=== PATIENT | male | born 1960 | race Caucasian/White ===

== ENCOUNTER → 2016-05-26 | Outpatient (CLI) | payer BC ==
[~2016-05-26] MED LIST: BYSTOLIC5 MG PO; ELIQUIS 5MG PO; HCTZ12.5TAB PO; PRILOSEC 20MG20 MG PO
== END ==
LOC: COL.RAD 07:47
DX: M16.11 Unilateral primary osteoarthritis, right hip (principal)
CPT/HCPCS: J3301; Q9967

== ENCOUNTER → 2016-11-16 | Outpatient (CLI) | payer BC | LOC: COL.VAS 14:33 | DX: M79.662 Pain in left lower leg (principal) ==

== ENCOUNTER 2017-01-13 13:38 | Inpatient (IN) | payer BC ==
[~2017-01-13] VITALS: Ht 182.9 cm; Wt 81.6 kg
[2017-03-08] VITALS (12 sets, daily range): BP systolic 85–142; BP diastolic 51–94; PULSE 51–110; TEMP 97.8–98.9
[2017-03-08] MEDS ORDERED: FERROUSAL325 MG PO (05:57)
[2017-03-08] MEDS ORDERED: VITAMIN C500 MG PO (05:58)
[2017-03-08] MEDS ORDERED: FOLIC ACID 40400 MCG PO (05:59)
[2017-03-08] MEDS ORDERED: CIALIS5 MG PO (06:01)
[2017-03-08] MEDS ORDERED: XARELTO20 MG PO (10:13)
[2017-03-09] VITALS: BP 138/76; PULSE 73; TEMP 99.6
[2017-03-09 04:15] VITALS: BP 141/80; PULSE 67; TEMP 98.9
[2017-03-09 06:22] LABS: HEMOGLOBIN 12.6 g/dl (13.5-18.0)
[2017-03-09 06:25] LABS: HEMATOCRIT 35.4 % (42.0-52.0)
[2017-03-09 08:10] VITALS: BP 129/78; PULSE 79; TEMP 99.2
[2017-03-09 12:44] VITALS: BP 133/80; PULSE 72; TEMP 97.9
== END 2017-03-09 14:45 | disposition home or self-care (01) | DRG 470 ==
LOC: JCC 03-08 05:28
PROVIDERS: Orthopaedic Surgery
PROC: 0SRB0JZ Replacement of Left Hip Joint with Synthetic Substitute, Open Approach (ICD-10-PCS; principal; 2017-03-08 07:30)
DX: M16.12 Unilateral primary osteoarthritis, left hip (principal); I10 Essential (primary) hypertension
CPT/HCPCS: A9284; C1713; C1776; J0690; J1100; J1200; J2250; J2274; J2405; J2704; J7120

== ENCOUNTER → 2017-02-08 | Outpatient (CLI) | payer BC | LOC: COL.VAS 10:27 | DX: I82.812 Embolism and thrombosis of superficial veins of left lower extremity (principal) ==

== ENCOUNTER 2017-03-07 14:48 | Outpatient (RCR) | payer BC ==
[2017-03-08] MEDS ORDERED: FERROUSAL325 MG PO (05:57)
[2017-03-08] MEDS ORDERED: VITAMIN C500 MG PO (05:58)
[2017-03-08] MEDS ORDERED: FOLIC ACID 40400 MCG PO (05:59)
[2017-03-08] MEDS ORDERED: CIALIS5 MG PO (06:01)
[2017-03-08] MEDS ORDERED: XARELTO20 MG PO (10:13)
== END 2017-03-09 12:41 ==
LOC: WSPT 14:48
DX: Z01.818 Encounter for other preprocedural examination (principal)

== ENCOUNTER 2017-04-20 15:30 | Outpatient (RCR) | payer BC ==
[~2017-04-20 15:30] MED LIST changes: +CIALIS5 MG PO; +FERROUSAL325 MG PO; +FOLIC ACID 40400 MCG PO; +VITAMIN C500 MG PO; +XARELTO20 MG PO
== END 2017-04-20 17:00 | disposition home or self-care (01) ==
LOC: WSPT 15:30
DX: Z47.89 Encounter for other orthopedic aftercare (principal); Z96.642 Presence of left artificial hip joint

== ENCOUNTER 2017-05-23 12:54 | Inpatient (IN) | payer BC ==
[~2017-05-23] VITALS: Ht 182.9 cm; Wt 82.2 kg
[2017-08-15] VITALS (12 sets, daily range): BP systolic 99–134; BP diastolic 53–84; PULSE 52–772; TEMP 8
[2017-08-15] MEDS ORDERED: ELIQUIS 5MG PO (05:58)
[2017-08-15 06:09] LABS: INR 0.9 (0.8-3.0); PROTHROMBIN TIME 10.4 SECONDS (9.7-12.8)
[2017-08-16 00:14] VITALS: BP 135/94; PULSE 68; TEMP 98.5
[2017-08-16 04:47] VITALS: BP 122/72; PULSE 72; TEMP 98
[2017-08-16 06:35] LABS: HEMOGLOBIN 12.2 g/dl (13.5-18.0)
[2017-08-16 06:37] LABS: HEMATOCRIT 34.4 % (42.0-52.0)
[2017-08-16 08:48] VITALS: BP 132/58; PULSE 79; TEMP 98.8
== END 2017-08-16 11:15 | disposition home or self-care (01) | DRG 470 ==
LOC: JCC 06-14 10:45
PROVIDERS: Orthopaedic Surgery; Physician Assistant
PROC: 0SR90JA Replacement of Right Hip Joint with Synthetic Substitute, Uncemented, Open Approach (ICD-10-PCS; principal; 2017-08-15 07:30)
DX: M16.11 Unilateral primary osteoarthritis, right hip (principal); M87.351 Other secondary osteonecrosis, right femur; I10 Essential (primary) hypertension; Z86.718 Personal history of other venous thrombosis and embolism; Z95.820 Peripheral vascular angioplasty status with implants and grafts
CPT/HCPCS: A9284; C1713; C1776; J0690; J1100; J2250; J2274; J2405; J2704; J2765; J3010; J7120; J7121

== ENCOUNTER → 2017-06-06 | Outpatient (CLI) | payer BC | LOC: COL.VAS 09:15 | DX: I82.432 Acute embolism and thrombosis of left popliteal vein (principal) ==

== ENCOUNTER → 2017-08-08 | Outpatient (CLI) | payer BC | LOC: COL.LAB 14:35 → COL.RAD 14:35 | DX: Z01.812 Encounter for preprocedural laboratory examination (principal) ==

== ENCOUNTER 2017-09-29 14:30 | Outpatient (RCR) | payer BC | END 2017-11-23 | disposition home or self-care (01) | LOC: WSC | DX: Z47.1 Aftercare following joint replacement surgery (principal); Z96.641 Presence of right artificial hip joint ==

== ENCOUNTER → 2017-12-22 | Outpatient (CLI) | payer BC | LOC: COL.RAD 06:37 | DX: R11.2 Nausea with vomiting, unspecified (principal) | CPT/HCPCS: A9541 ==

== ENCOUNTER → 2018-09-21 | Outpatient (CLI) | payer BC | LOC: COL.VAS 09:05 | DX: I82.4Z2 Acute embolism and thrombosis of unspecified deep veins of left distal lower extremity (principal) ==

== ENCOUNTER → 2020-01-28 | Outpatient (CLI) | payer BC | LOC: COL.RAD 07:24 | DX: I77.810 Thoracic aortic ectasia (principal); R91.8 Other nonspecific abnormal finding of lung field | CPT/HCPCS: Q9967 ==

== ENCOUNTER → 2020-10-09 | Outpatient (CLI) | payer BC | LOC: COL.RAD 14:37 | DX: J90 Pleural effusion, not elsewhere classified (principal); K76.0 Fatty (change of) liver, not elsewhere classified; J98.11 Atelectasis; S22.079A Unspecified fracture of T9-T10 vertebra, initial encounter for closed fracture; S22.089A Unspecified fracture of T11-T12 vertebra, initial encounter for closed fracture; S32.019A Unspecified fracture of first lumbar vertebra, initial encounter for closed fracture; S32.029A Unspecified fracture of second lumbar vertebra, initial encounter for closed fracture; Z96.643 Presence of artificial hip joint, bilateral | CPT/HCPCS: Q9967 ==

== ENCOUNTER → 2020-11-13 | Outpatient (CLI) | payer BC | LOC: COL.RAD 07:23 | DX: K29.70 Gastritis, unspecified, without bleeding (principal); R68.81 Early satiety ==

== ENCOUNTER 2021-05-10 08:25 | Day surgery (SDC) | payer BC ==
[2021-05-10] VITALS (9 sets, daily range): BP systolic 97–148; BP diastolic 58–81; PULSE 62–78; TEMP 98.3
[~2021-05-10] VITALS: Ht 183 cm; Wt 84.0 kg
[2021-05-10 09:03] LABS: HEMATOCRIT 47.1 % (42.0-52.0); HEMOGLOBIN 16.1 g/dl (13.5-18.0); MEAN CELL VOLUME 102 fl (80.0-100.0); MEAN CORPUSCULAR HEMOGLOBIN 35 pg (27-31); MEAN CORPUSCULAR HGB CONC 34 g/dl (33.0-37.0); MEAN PLATELET VOLUME 10.4 fl (7.4-10.4); PLATELET COUNT 180 K/mm3 (130-400); REDCELL DISTRIBUTION WIDTH-CV 11.6 % (11.5-14.5)
--- NOTE | 2021-05-10 09:09 | NUR ---
SEE MERGE FOR ALL MEDICATION ADMINISTRATION TIMES/DOSAGES AND INTRA/POST PROCEDURE SEDATION ASSESSMENTS. PRE PROCEDURE ASSESSMENT COMPLETED IN [facility].
[2021-05-10 09:13] LABS: PROTHROMBIN TIME 10.7 SECONDS (9.7-12.8)
[2021-05-10] MEDS ORDERED: CARDIZEM CD 24240 MG PO (09:13)
[2021-05-10] MEDS ORDERED: KLOR-CON 1010 MEQ PO (09:14)
[2021-05-10] MEDS ORDERED: ZOFRAN8 MG PO (09:14)
[2021-05-10 09:15] LABS: PARTIAL THROMBOPLASTIN TIME 33.9 SECONDS (26.0-37.0)
[2021-05-10] MEDS ORDERED: COZAAR 50MG50 MG/TAB PO (09:15)
[2021-05-10] MEDS ORDERED: TAMBOCOR50 MG PO (09:16)
[2021-05-10] MEDS ORDERED: ZYLOPRIM 300MG300 MG PO (09:17)
[2021-05-10 09:28] LABS: ALBUMIN 3.6 gm/dL (3.4-4.8); BILIRUBIN,TOTAL 0.7 mg/dL (0.2-1.2); CALCIUM 8.5 mg/dL (8.4-10.2); CREATININE, serum 0.86 mg/dL (0.72-1.25); POTASSIUM 3.9 mmol/L (3.5-4.5); TOTAL PROTEIN 6.6 gm/dL (6.2-8.1)
--- NOTE | 2021-05-10 10:45 | NUR ---
Report from Oliva CORONA. 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 Alert and oriented, denies pain and needs at this time. Right Tband with 12 cc air CD&I, good pulses and cap refill < 3 secs. bedside
--- NOTE | 2021-05-10 13:17 | NUR ---
12 cc air released from right Tband and drsg applied. INT discontinued intact. Discharge instructions given to pt/.
--- NOTE | 2021-05-10 13:20 | NUR ---
Transferred to private car by barron
== END 2021-05-10 13:20 | disposition home or self-care (01) ==
LOC: COL.CAR 08:25
PROVIDERS: Internal Medicine Cardiovascular Disease
DX: R94.39 Abnormal result of other cardiovascular function study (principal); I10 Essential (primary) hypertension; I48.0 Paroxysmal atrial fibrillation; I82.502 Chronic embolism and thrombosis of unspecified deep veins of left lower extremity; F10.10 Alcohol abuse, uncomplicated; F17.220 Nicotine dependence, chewing tobacco, uncomplicated; Z90.89 Acquired absence of other organs; Z79.899 Other long term (current) drug therapy
CPT/HCPCS: C1769; J1644; J2250; J3010; J7030; Q9967

== ENCOUNTER 2024-01-15 13:31 | Inpatient (IN) | payer BC ==
[2024-01-15] VITALS (7 sets, daily range): BP systolic 130–146; BP diastolic 65–85; PULSE 68–86; TEMP 98.2–98.7
[~2024-01-15] VITALS: Ht 182.9 cm; Wt 83.2 kg
[~2024-01-15 13:31] MED LIST changes: +CARDIZEM CD 24240 MG PO; +COZAAR 50MG50 MG/TAB PO; +KLOR-CON 1010 MEQ PO; +TAMBOCOR50 MG PO; +ZOFRAN8 MG PO; +ZYLOPRIM 300MG300 MG PO
[2024-01-15 14:14] LABS: BASO # 0.1 K/mm3 (0.0-0.2); BASO % 0.6 % (0.0-2.0); EOS % 0.1 % (0.0-4.0); GRAN # 6.2 K/mm3 (1.4-6.5); GRAN % 78.9 % (42.2-75.2); HEMATOCRIT 42.7 % (42.0-52.0); HEMOGLOBIN 15.2 g/dl (13.5-18.0); LYMPH # 0.9 K/mm3 (1.2-3.4); MEAN CELL VOLUME 101 fl (80.0-100.0); MEAN CORPUSCULAR HEMOGLOBIN 36 pg (27-31); MEAN CORPUSCULAR HGB CONC 36 g/dl (33.0-37.0); MONO # 0.7 K/mm3 (0.1-0.6); MONO % 9.1 % (1.7-9.3); PLATELET COUNT 165 K/mm3 (130-400); RED BLOOD COUNT 4.22 M/mm3 (4.20-5.60); REDCELL DISTRIBUTION WIDTH-CV 11.6 % (11.5-14.5)
[2024-01-15 14:28] LABS: BILIRUBIN,TOTAL 1.4 mg/dL (0.2-1.2); C-REACTIVE PROTEIN 0.45 mg/dL (0.00-0.50); CALCIUM 9.9 mg/dL (8.4-10.2); CREATININE, serum 1.42 mg/dL (0.72-1.25); MAGNESIUM 1.5 mg/dL (1.6-2.6)
[2024-01-15] MEDS ORDERED: LORazepam 2 MG/ML 1 ML VIAL IV ONE (15:30)
[2024-01-15] MEDS ORDERED: Folic Acid 1 MG,Thiamine 200 MG in NS 1,000 ML IV ONE (15:30)
[2024-01-15] MEDS ORDERED: PROZAC 20MG20 MG PO (15:40)
[2024-01-15] MEDS ORDERED: PROTONIX 40MG T40 MG PO (15:41)
[2024-01-15] MEDS ORDERED: TAMBOCOR 1100 MG/TAB PO (15:41)
[2024-01-15] MEDS ORDERED: CARTIA XT240 MG PO (15:42)
[2024-01-15] MEDS ORDERED: Folic Acid 1 MG TAB PO SCH (16:12)
[2024-01-15] MEDS ORDERED: NS 1,000 ML IV SCH (16:15)
[2024-01-15] MEDS ORDERED: LORazepam 2 MG/ML 1 ML VIAL IV PRN (16:15)
[2024-01-15] MEDS ORDERED: Mag/Al Hydrox/Simeth Susp 30 ML CUP PO PRN (16:15)
[2024-01-15] MEDS ORDERED: Ondansetron 4 MG/2 ML VIAL IV PRN (16:15)
[2024-01-15] MEDS ORDERED: Magnesium Sulfate 8% 50 ML IV ONE (16:30)
[2024-01-15] MEDS ORDERED: Multivitamin TAB PO SCH (17:00)
[2024-01-15] MEDS ORDERED: Magnesium Oxide 400 MG TAB PO SCH (17:00)
[2024-01-15] MEDS ORDERED: NS 1,000 ML IV ONE (17:00)
--- NOTE | 2024-01-15 17:31 | NUR ---
Pt. arrived to the floor. Pt. is A&OX3, assessment complete. IV to lt. ac patent, IV fluids infusing per orders. Pt. denies pain or other needs, call light chuyhtin reach.
--- NOTE | 2024-01-15 20:15 | NUR ---
Initial shift assessment done- watching TV, on his phone, states he is feeling fine-- denies any nausea/anxiety, does have tremors noted to hands/arms, tele on-Sinus, will put pt on fall risk due to tremors/understands to call for assistance to bathroom, bed alarm on, IV fluids of NS at 125cc/hr, states did eat a good supper tonight .VSS.
[2024-01-15 20:33] LABS: TRICYCLIC ANTIDEPRESS URINE NEGATIVE (NEGATIVE)
[2024-01-15] MEDS ORDERED: Apixaban 5 MG TABLET PO SCH (21:00)
[2024-01-16] VITALS (15 sets, daily range): BP systolic 128–158; BP diastolic 74–94; PULSE 79–95; TEMP 97.4–98.7
--- NOTE | 2024-01-16 05:20 | NUR ---
Pt awake ,, has been resting quietly most of the night, now nauseated, dry heaves, slight headache, will medicate for nausea and will also give Ativan 1 mg IV for a CIWA scaore of 10
[2024-01-16 07:14] LABS: BASO # 0.1 K/mm3 (0.0-0.2); BASO % 1.1 % (0.0-2.0); EOS # 0.1 K/mm3 (0.0-0.7); EOS % 1.1 % (0.0-4.0); GRAN # 3.2 K/mm3 (1.4-6.5); LYMPH # 0.9 K/mm3 (1.2-3.4); LYMPH % 19.9 % (20.0-51.0); MEAN CELL VOLUME 103 fl (80.0-100.0); MEAN CORPUSCULAR HGB CONC 35 g/dl (33.0-37.0); MEAN PLATELET VOLUME 11.7 fl (7.4-10.4); MONO # 0.4 K/mm3 (0.1-0.6); MONO % 8.5 % (1.7-9.3); PLATELET COUNT 114 K/mm3 (130-400); RED BLOOD COUNT 3.46 M/mm3 (4.20-5.60); REDCELL DISTRIBUTION WIDTH-CV 11.6 % (11.5-14.5)
[2024-01-16 07:18] LABS: HEMATOCRIT 35.6 % (42.0-52.0); HEMOGLOBIN 12.3 g/dl (13.5-18.0); MEAN CORPUSCULAR HEMOGLOBIN 36 pg (27-31)
[2024-01-16 07:21] LABS: ALBUMIN 3.1 g/dL (3.4-4.8); BILIRUBIN,TOTAL 1.6 mg/dL (0.2-1.2); CALCIUM 8.5 mg/dL (8.4-10.2); CREATININE, serum 1.03 mg/dL (0.72-1.25); MAGNESIUM 1.9 mg/dL (1.6-2.6); POTASSIUM 3.8 mEq/L (3.5-4.5); TOTAL PROTEIN 5.4 g/dl (6.2-8.1)
--- NOTE | 2024-01-16 08:16 | NUR ---
patient sitting in bed resting. denies pain but reports mild nausea at this time. fluids infusing per doctor's order. telemetry inplace. ciwa protocol inplace. denies any other needs at this time. call ligth within reach. bed at lowest position.
[2024-01-16] MEDS ORDERED: dilTIAZem CD (24-HR) 240 MG CAP PO SCH (09:00)
[2024-01-16] MEDS ORDERED: FLUoxetine 20 MG CAP PO SCH (09:00)
--- NOTE | 2024-01-16 10:18 | NUR ---
coke worker met with patient to discuss discharge planning. Patient lives in [place] with his , Josefina, P# [phone]. Patient's second point of contact is Kiara (daughter) P# [phone]. PCP is Dr. Garcia, pharmacy is [facility]. No issues affording medications. Insurance is [employer]. Patient reports his DPOA-HC would be Josefina and his two daughters but does not have a form offically completed. SW provided a blank copy of the DPOA-HC in case patient decided to complete one while in the hospital. No DME that patient currently uses. Patient reports to be independent with ADLS at home. Patient reported he has a form of transportation to get to and from appointments. SW discussed alcohol rehab as patient's history and physical reported he was interested in rehab options. SW presented the drug and alcohol resource guide. Patient stated he thought that a hospital this size should have a second step facility where he could go to for drug and alcohol rehab. SW explained unfortunately that those services are not available at the hospital. Patient stated he was not interested in going out of town for rehab but he would discuss with his . Patient reported he has gone to AA meetings before and that was helpful. Patient would like to return home at time of discharge. Discharge plan: Home
[2024-01-16] MEDS ORDERED: Thiamine 100 MG TAB PO SCH (12:00)
--- NOTE | 2024-01-16 20:02 | NUR ---
PATIENT RESTING IN BED WATCHING TV. DENIES ANY PAIN OR NAUSEA AT THIS TIME. CALL LIGHT IS WITHIN REACH. BED IS LOCKED AND IN LOW POSITION.
[2024-01-17] VITALS (11 sets, daily range): BP systolic 134–154; BP diastolic 77–88; PULSE 68–85; TEMP 97.3–98.9
[2024-01-17 06:41] LABS: BASO % 0.5 % (0.0-2.0); EOS # 0.1 K/mm3 (0.0-0.7); EOS % 1.2 % (0.0-4.0); GRAN # 4.2 K/mm3 (1.4-6.5); HEMOGLOBIN 12.2 g/dl (13.5-18.0); LYMPH # 1.1 K/mm3 (1.2-3.4); LYMPH % 19.1 % (20.0-51.0); MEAN CELL VOLUME 102 fl (80.0-100.0); MEAN CORPUSCULAR HEMOGLOBIN 36 pg (27-31); MEAN CORPUSCULAR HGB CONC 35 g/dl (33.0-37.0); MEAN PLATELET VOLUME 11.5 fl (7.4-10.4); MONO # 0.5 K/mm3 (0.1-0.6); MONO % 8.9 % (1.7-9.3); PLATELET COUNT 104 K/mm3 (130-400); RED BLOOD COUNT 3.44 M/mm3 (4.20-5.60); REDCELL DISTRIBUTION WIDTH-CV 11.2 % (11.5-14.5)
[2024-01-17 06:42] LABS: HEMATOCRIT 35.2 % (42.0-52.0)
[2024-01-17 07:19] LABS: CALCIUM 8.4 mg/dL (8.4-10.2); CREATININE, serum 0.8 mg/dL (0.72-1.25); MAGNESIUM 1.5 mg/dL (1.6-2.6); POTASSIUM 3.5 mEq/L (3.5-4.5)
--- NOTE | 2024-01-17 08:00 | NUR ---
patient laying in bed resting. on room air, telemetry inplace. patient reports mild nausea and denies pain at this time. patient VSS wnl. patient call light within reach. bed at lowest position. shift assessment completed. denies any other needs at this time.
[2024-01-17] MEDS ORDERED: Losartan 50 MG TAB PO SCH (09:00)
[2024-01-17] MEDS ORDERED: MAG-OX 400400 MG/TAB PO (10:34)
[2024-01-17] MEDS ORDERED: THIAMINE 1100 MG/TAB PO (10:34)
[2024-01-17] MEDS ORDERED: FOLIC ACID 11 MG/TA1 PO (10:34)
[2024-01-17] MEDS ORDERED: MULTI VITAMINS1 TAB PO (10:35)
[2024-01-17] MEDS ORDERED: Magnesium Sulfate 4 GM/50 ML IV SOLN IV SCH ×2 (11:45→12:00)
--- NOTE | 2024-01-17 16:00 | NUR ---
PATIENT DISCHARGE INSTRUCTIONS GIVEN. PATIENT FAMILY AT BEDSIDE. PATIENT VERBALIZED UNDERSTANDING. PATIENT INSTRUCTED TO CALL WHEN READY TO GO.
== END 2024-01-17 16:30 | disposition home or self-care (01) | DRG 897 ==
LOC: COL.ER 13:31 → MEDICAL 15:31
PROVIDERS: Nurse Practitioner; ADMIT Internal Medicine
DX: F10.139 Alcohol abuse with withdrawal, unspecified (principal); N17.9 Acute kidney failure, unspecified; I48.91 Unspecified atrial fibrillation; I10 Essential (primary) hypertension; F41.9 Anxiety disorder, unspecified; Z96.643 Presence of artificial hip joint, bilateral; E86.0 Dehydration; D69.6 Thrombocytopenia, unspecified; R79.89 Other specified abnormal findings of blood chemistry; E83.42 Hypomagnesemia; Y90.5 Blood alcohol level of 100-119 mg/100 ml; Z79.01 Long term (current) use of anticoagulants; Z90.89 Acquired absence of other organs; Z79.899 Other long term (current) drug therapy; Z86.718 Personal history of other venous thrombosis and embolism; Z23 Encounter for immunization
CPT/HCPCS: J2060; J2405; J3411; J3475; J7030